=== PATIENT | male | born 1985 | race Caucasian/White ===

== ENCOUNTER 2020-08-23 01:03 | Emergency (ER) | payer OTHER ==
[~2020-08-23] VITALS: Ht 185.4 cm; Wt 68.1 kg
[2020-08-23] MEDS ORDERED: VOLTAREN75 MG PO (03:18)
[2020-08-23] MEDS ORDERED: TRAMADOL HCL50 MG PO (03:18)
[2020-08-23 03:46] VITALS: BP 103/56
== END 2020-08-23 03:48 | disposition home or self-care (01) | DRG 552 ==
LOC: ED 01:03
DX: S22.019A Unspecified fracture of first thoracic vertebra, initial encounter for closed fracture (principal); S42.022A Displaced fracture of shaft of left clavicle, initial encounter for closed fracture; V49.40XA Driver injured in collision with unspecified motor vehicles in traffic accident, initial encounter